=== PATIENT | female | born 1960 | race African-American/Black ===

== ENCOUNTER → 2024-11-04 | Outpatient (CLI) | payer OTHER, SELFPAY ==
--- NOTE | 2024-11-04 09:41 | ECHOD_ITS ---
Reason For Study: CAD/ASHD Procedure This was a 2D Doppler, Color Flow transthoracic echocardiogram. Exam performed in department. Left Ventricle Normal LV size. The estimated ejection fraction is 60 %. No evidence for diastolic dysfunction. No regional wall motion abnormalities noted. Right Ventricle Normal RV size. Normal systolic function. Atria The left and right atria are normal. No doppler evidence for ASD. Mitral Valve There is no mitral valve stenosis. Trivial mitral valve insufficiency. Tricuspid Valve There is no tricuspid stenosis. Trivial tricuspid valve insufficiency. Pulmonary artery systolic pressure is 20-25 mmHg. Aortic Valve Trisinus/trileaflet aortic valve. There is no aortic stenosis. No aortic valve insufficiency. Pulmonic Valve There is no pulmonic valvular stenosis. No pulmonic valve insufficiency. Great Vessels Normal aortic root. Pericardium/Pleural No pericardial effusion. MMode/2D Measurements & Calculations LVIDd: 5.2 cm IVSd: 1.3 cm Ao root diam: 3.9 cm LVIDs: 3.3 cm LVPWd: 1.1 cm RVDd: 3.5 cm FS: 35.6 % asc Aorta Diam: 3.9 cm LAV(MOD-bp): 37.8 ml LVAd ap4: 28.9 cm2 LAV(MOD-bp) Indexed: 18.0 ml/m2 LVLd ap4: 8.3 cm LAV(MOD-sp2): 36.8 ml EDV(MOD-sp4): 85.3 ml LAV(MOD-sp4): 37.7 ml EDV(sp4-el): 85.4 ml LVAs ap4: 15.7 cm2 LVLs ap4: 6.8 cm ESV(MOD-sp4): 34.3 ml ESV(sp4-el): 30.8 ml EF(MOD-sp4): 59.7 % EF(sp4-el): 64.0 % SV(MOD-sp4): 51.0 ml SV(sp4-el): 54.7 ml LA A4 area: 14.2 cm2 SI(MOD-sp4): 24.2 ml/m2 LA dimension(2D): 4.5 cm RA A4 area: 17.1 cm2 TAPSE: 1.7 cm Time Measurements MV dec time: 0.24 sec Doppler Measurements & Calculations MV E max bhavesh: 57.8 cm/sec Lat Peak E' Bhavesh: 7.9 cm/sec Med Peak E' Bhavesh: 5.2 cm/sec MV A max bhavesh: 75.2 cm/sec E/E' lat: 7.3 E/E' med: 11.1 MV E/A: 0.77 MV V2 max: 78.0 cm/sec MV P1/2t max bhavesh: 67.3 cm/sec Ao V2 max: 137.9 cm/sec MV max P.4 mmHg MV P1/2t: 81.8 msec Ao max P.6 mmHg MV V2 mean: 38.7 cm/sec Ao V2 mean: 92.5 cm/sec MV mean P.74 mmHg MV dec slope: 241.1 cm/sec2 Ao mean P.9 mmHg MV V2 VTI: 22.0 cm MVA(P1/2t): 2.7 cm2 Ao V2 VTI: 31.8 cm AV (velocity ratio): 0.92 LV V1 max: 127.7 cm/sec PA V2 max: 99.4 cm/sec TR max bhavesh: 211.1 cm/sec LV V1 max P.5 mmHg TR max P.8 mmHg LV V1 mean P.3 mmHg LV V1 mean: 83.9 cm/sec LV V1 VTI: 29.4 cm ECHO/Echo Complete Interpretation Summary The estimated ejection fraction is 60 %. No evidence for diastolic dysfunction. Trivial mitral valve insufficiency. Ordering Physician: Edwardo Ansari Referring Physician: Edwardo Ansari Performed By: Bennett Christianson RCS
== END | disposition home or self-care (01) ==
LOC: CVS 09:39
PROVIDERS: PCP Family Medicine; Referring Provider Chiropractor; Visit Provider Chiropractor
DX: I25.10 Atherosclerotic heart disease of native coronary artery without angina pectoris (principal)
CPT/HCPCS: 93306